=== PATIENT | female | born 1960 | race Caucasian/White ===

== ENCOUNTER 2016-07-20 05:59 | Day surgery (SDC) | payer OTHER ==
[~2016-07-20] VITALS: Ht 165.1 cm; Wt 74.4 kg
[2016-07-20 07:21] VITALS: Ht 165.1 cm; Wt 74.4 kg
[2016-07-20] MEDS ORDERED: OMEP40CA6 PO (07:33)
[2016-07-20] MEDS ORDERED: LINA145C PO (07:33)
[2016-07-20 07:53] VITALS: BP 113/55; PULSE 81; RESP 20
[2016-07-20] MEDS ORDERED: FENTAnyl 50 MCG/ML VIAL ONE (08:46)
[2016-07-20] MEDS ORDERED: MIDAZOLAM 1 MG/ML 2 ML INJ ONE ×3 (08:46)
[2016-07-20 09:03] VITALS: BP 118/71; PULSE 68; RESP 15
--- NOTE | 2016-07-20 13:54 | GILP ---
DATE OF PROCEDURE: 07/20/2016 NAME OF PROCEDURES: 1. Esophagogastroduodenoscopy and biopsy. 2. Colonoscopy and polypectomy. SURGEON: Augie Zavaleta MD PREOPERATIVE DIAGNOSES: 1. Abdominal pain. 2. Chronic heartburn. 3. Screening colonoscopy. POSTOPERATIVE DIAGNOSES: 1. Hiatal hernia. 2. Gastroesophageal reflux disease. 3. Gastritis. Biopsy was positive for Helicobacter pylori infection. 4. Colonoscopy all the way to the cecum. 5. Sigmoid colon polyp was removed using the snare and electrocautery. 6. Small cecal polyp was biopsied. 7. Internal hemorrhoids. INDICATION FOR THE PROCEDURE: Ms. Brigid Cornelius is a 55-year-old female patient who espinosa d upper abdominal pain and chronic heartburn, not responding to therapy. The patient also needed a screening colonoscopy. The procedures and possible complications were well explained to the patient, she understood and con sented to the procedure. DESCRIPTION OF PROCEDURE: Under the influence of fentanyl and Versed, the gastroscope was carefully introduced into the esophagus and under direct vision, it was advanced to the stomach and through t he pylorus into the duodenal bulb and descending duodenum. FINDINGS: ESOPHAGUS: The patient had hiatal hernia and gastroesophageal reflux disease. STOMACH: She had gastritis with erosions. Gastric biopsies were taken and they were positive for H elicobacter pylori infection. DUODENUM: Normal. The colonoscope was carefully introduced in the rectum and under direct vision, it was advanced all the way to the cecum. FINDINGS: The patient had a sigmoid colon polyp and it was removed using the snare and electrocaute ry. The patient also had a small polyp in the cecum and it was removed using the biopsy forceps. S he was noted to have internal hemorrhoids. She tolerated the procedures very well and there was no complication from the procedures. At the en d of the procedures, she was awake with stable vital signs and she was discharged home to the [facility] f her family. IMPRESSION: 1. Hiatal hernia. 2. Gastroesophageal reflux disease. 3. Gastritis and biopsy was positive for Helicobacter pylori infection. 4. Colonoscopy all the way to the cecum. 5. Sigmoid colon polyp was removed using the snare and electrocautery. 6. Cecal polyp was removed using the biopsy forceps. 7. Internal hemorrhoids. PLAN: 1. Continue omeprazole and Linzess. 2. Zantac 300 mg p.o. b.i.d. 3. Doxycycline 100 mg p.o. b.i.d. 4. Flagyl 500 mg p.o. b.i.d. 5. Pepto-Bismol 2 tablets p.o. q.i.d. All of these last 4 medications for 14 days for Helicobacter pylori infection. Await histopathology report. Next screening colonoscopy in 5 years. Dictated By: AUGIE KAPLAN/ADAN Conf#: [id number] DID#: [id number] CC: AUGIE ZAVALETA MD;*EndCC*
== END 2016-07-20 09:46 | disposition home or self-care (01) ==
LOC: GIL 05:59
PROVIDERS: ATTEND Internal Medicine Gastroenterology
DX: Z12.11 Encounter for screening for malignant neoplasm of colon (principal); D12.0 Benign neoplasm of cecum; D12.5 Benign neoplasm of sigmoid colon; B96.81 Helicobacter pylori [H. pylori] as the cause of diseases classified elsewhere; K44.9 Diaphragmatic hernia without obstruction or gangrene; K21.9 Gastro-esophageal reflux disease without esophagitis; K29.70 Gastritis, unspecified, without bleeding; K64.8 Other hemorrhoids
CPT/HCPCS: 43239; 45380; 87081; 88305; J2250; J3010; Z7610